=== PATIENT | male | born 1990 | race Caucasian/White ===

== ENCOUNTER 2020-04-19 00:52 | Outpatient (CLI) | payer OTHER, SELFPAY ==
[2020-04-19 18:47] LABS: SARS-CoV-2 RNA PCR Negative
== END 2020-04-19 00:53 | disposition home or self-care (01) ==
LOC: ANHCOVIDDT 00:53
PROVIDERS: Visit Provider Orthopaedic Surgery
DX: Z01.812 Encounter for preprocedural laboratory examination (principal); Z20.822 Contact with and (suspected) exposure to COVID-19
CPT/HCPCS: C9803; U0003; U0005

== ENCOUNTER 2020-04-23 02:10 | Day surgery (SDC) | payer OTHER, SELFPAY ==
[2020-04-11 15:04] VITALS: BMI 26.4
--- NOTE | 2020-04-18 12:50 | PM.IMHP ---
H&P: HPI History of Present Illness Date/Time: 04/18/20 12:50 Chief Complaint: Right shoulder pain after an injury with rotator cuff tendon tear. Narrative: Marcel Urrutia is a 29 year old male who presents with right shoulder pain chronic in nature. Patient has aching pain in the shoulder particularly since he has fallen and injured his right shoulder tried to catch himself on his outstretched arm. Immediately afterwards he tried to move his shoulder but had severe stabbing pain deep-seated in the shoulder. He was unable to use his arm normally. He has pain with trying to lift his arm overhead, initially after the injury he had x-rays at Urgent Care which revealed no fracture or lesion or mass. There was no evidence of a shoulder dislocation. Prior to the injury he never had a whole lot of problems with the shoulder. He remained now reports weakness and aching pain with rotation or overhead motion. Despite conservative measures including cortisone therapy and anti-inflammatories as symptoms continue. An MRI scan was then performed, this revealed on 03/31/2020, a full-thickness tear measuring 7.2 mm of the subscapularis insertion site. The patient does have supraspinatus tendinosis, the infraspinatus tendon is intact. There is AC joint hypertrophy type 2 acromion with subacromial outlet narrowing. Fluid is noted in the subdeltoid recess as well. The biceps tendon and bicipital labral complex are grossly preserved. At this point the patient is where the above findings he has discuss further treatment options in detail with Dr. Langston. The patient is now ready to proceed with surgical intervention right shoulder. Review of Systems Review of Systems: All systems reviewed & are unremarkable except as noted in HPI and below PMFSH Social History Social History Smoking status: Never smoker Spiritual care concerns: No Meds Home Medications and Allergies Home Medications Medication Instructions Recorded Confirmed Type multivit with min-folic acid 1 tablet PO DAILY 04/11/20 04/11/20 History [Adult One Daily Multivitamin] Allergies Allergy/AdvReac Type Severity Reaction Status Date / Time No Known Allergies Allergy Verified 04/11/20 15:03 Exam Narrative: Exam Narrative: The patient is noted to be a well-developed well-nourished male in no acute distress. He is alert and oriented x3. Normal mood and affect. Hearing and vision intact. Respiratory is good no distress. Pulse regular rate and rhythm. Abdomen benign. Extremities showed the patient's right shoulder to be painful with manipulation and range of motion. Actively he can raise his arm to about 90? passively he can get up to about 120? however this is painful. He has no crepitation no obvious deformity of the shoulder. Despite being quite muscular he has weakness And painful giving way with rotator cuff strength testing. Shoulder joint is otherwise stable. He has full painless neck motion. Skin is intact without rashes or lesions. Biceps strength is intact. Neurovascularly the patient is intact. Central nervous system exam within normal limits. Assessment and Plan Additional Plan By MRI and exam the patient is noted to have impingement with AC joint arthrosis type 2 acromion and rotator cuff tendon tear as described above. The patient has discussed risks benefits limitations and alternatives of surgery in great detail Dr. Langston he is now ready to proceed with a right shoulder arthroscopy, acromioplasty, open distal clavicle excision and rotator cuff repair proceed as indicated. Patient is scheduled to undergo surgery 04/23/2020 [facility] Dr. Langston. The patient voiced understanding and agrees with the above plan.
--- NOTE | 2020-04-22 15:53 | WPDANESEPPF ---
Anes - Initial Pre Proc Eval Procedure: Operation Date: 04/23/20 07:30 Proposed Procedures p Right Shoulder Arthroscopy, Acromioplasty, Open Distal Clavicle Excision, Rotator Cuff Repair, Proceed As Indicated - Dawson Langston MD Date/Time: 04/22/20 15:53 Surgeon: Dawson Langston MD Pre Op Diagnosis: right rotator cuff tear Patient Data Age: 29 Gender: M Height: 1.83 m Weight: 88.5 kg Allergies Allergy/AdvReac Type Severity Reaction Status Date / Time No Known Allergies Allergy Verified 04/23/20 06:21 Home Medications Medication Instructions Recorded Confirmed Type multivit with min-folic acid 1 tablet PO DAILY 04/11/20 04/23/20 History [Adult One Daily Multivitamin] Patient hx anesthesia problems: none Family hx anesthesia problems: none [facility] Past Medical History Medical History (Updated 04/22/20 @ 15:53 by Darren Merrill MD) Anxiety Depression Overweight (BMI 25.0-29.9) Social History Social History Smoking status: Never smoker Living arrangements: with family Spiritual care concerns: No Anes - Eval Final PreProcedure Day of Procedure 04/22/20 15:53 Patient weight: overweight Heart: regular rate and rhythm Lungs: clear to auscultation and normal air movement Airway: Mallampati scale class II Neurological: alert and oriented Last oral intake: >/= 8 hours ASA classification: II Emergent: no Anesthetic plan: proceed Anesthesia type and monitoring: general ETT Informed Consent: The patient's anesthetic plan and its attendant risks and benefits were discussed with the patient/family/POA. Questions were solicited and answers provided to the satisfaction of the patient/family/POA.
[2020-04-23] VITALS (9 sets, daily range): BP systolic 129–148; BP diastolic 66–83; PULSE 65–98; RESP 10–16; TEMP 36.2–36.7; O2SAT 94–100
[2020-04-23] MEDS: ACETAMINOPHEN 500 MG TABLET 1000 MG PO (06:23)
[2020-04-23] MEDS: LACTATED RINGERS 1,000 ML 30 ML IV CONT ×3 (06:50→10:50)
[2020-04-23] MEDS: KETOROLAC 15 MG/ML VIAL (*BKC) IV PUSH (06:50)
--- NOTE | 2020-04-23 07:03 | WPDHPUPDATE1 ---
History and Physical Update Update Date/Time: 04/23/20 07:03 History and Physical has been reviewed, including an updated exam of the patient. There are NO changes in the patient's condition. Risks, benefits, and alternatives have been discussed and questions answered. Patient agrees to proceed with procedure.
--- NOTE | 2020-04-23 07:10 | WPDANESPNB ---
Anes - Peripheral Nerve Block Date/Time: 04/23/20 07:10 I have discussed with the patient/family/POA the placement of a peripheral nerve block for post-operative pain management, including associated risks, benefits, complications, and side effects. Alternative methods of post-operative analgesia were detailed. Questions were solicited and answers provided to the satisfaction of the patient/family/POA. Time-Out: A pre-procedural Time-Out was completed immediately before starting the procedure and confirmed: Patient Identification, Site, Procedure, Patient Position and the Availability of Requisite Equipment. Clinical Indications: Acute post-operative pain management requested by the operative surgeon. Nerve Block Insertion Note Anes-nerve block: supraclavicular right Patient position: supine Skin prep: chlorhexidine Needle: 22 gauge, stimulating, insulated echogenic needle. Needle length: 80 mm Technique: ultrasound (in plane) Injectate: bupivacaine 0.5% with epi 5 mcg/ml (20cc) Observations: tolerated well Complications: none Procedure start time:: 715 Procedure end time::
[2020-04-23] MEDS: ceFAZolin 2 GM/D5W 50 ML 2 GM/50 ML BAG IVPB (08:19)
[2020-04-23] MEDS: LIDO 1%/EPINEPHRINE 1:100,000 50 ML VIAL 20 ML INFILTRATE (08:19)
--- NOTE | 2020-04-23 08:58 | PM.PROC ---
Procedure Note - Detailed Date of procedure: 04/23/20 Pre-op diagnosis: right rotator cuff tear Post-op diagnosis: same Anesthesia: GETA Surgeon: Dawson Langston MD Patient brought to operating room 7. A general anesthetic was administered placed on the operating table and sterilely prepped under standard posterolateral portals made arthroscopy began by injecting 20 cubic centimeters of local the biceps tendon was frayed 80% intact minimal rated the rotator cuff was obviously torn with the subacromial space and this was identified acromioplasty to skull a longitudinal incision then made from the AC joint distal were suction. Downs to the fascia distal clavicle was excised taking about 3 millimeters off edges beveled I split the deltoid have found the rotator cuff tear debrided the greater tuberosity and sewed it down with multiple 2. Ethibond sutures this gave a nice repair rock stable the arm was put through a full of motion some rasping of the acromion isn't done as of at this point the C-arm was smoothly and tear was repaired the deltoid was repaired to itself to acromion trapeze with 2. Ethibond closed 2 Vicryl and 3 0 Prolene SI told him before surgery in the office here is that this would disrupt his large tattoo Education Analyst: Juan Etienne Estimated blood loss (mL): 50 Drains: No Packing: No Pathology: none sent Complications: No immediate complications Condition: stable Disposition: PACU
[2020-04-23] MEDS: ONDANSETRON INJ 4 MG/2 ML VIAL IV PUSH (09:54)
== END 2020-04-23 12:35 | disposition home or self-care (01) ==
PROVIDERS: Family Provider Pediatrics; Visit Provider Orthopaedic Surgery
PROC: (CPT 29805; principal; 2020-04-23 07:30)
DX: S46.011A Strain of muscle(s) and tendon(s) of the rotator cuff of right shoulder, initial encounter (principal); X58.XXXA Exposure to other specified factors, initial encounter; G89.18 Other acute postprocedural pain
CPT/HCPCS: 23410; 23120; 64415; A9270; C9803; J0330; J0690; J1100; J1885; J2250; J2405; J2704; J3010; J7120; U0003; U0005

== ENCOUNTER 2023-04-10 23:11 | Emergency (ER) | payer OTHER, SELFPAY ==
[2023-04-10 23:17] VITALS: BP 138/82; PULSE 72; RESP 14; TEMP 36.6; O2SAT 99
[2023-04-10 23:41] LABS: Basophils Absolute Auto 0.1 K/mm3 (0.0-0.1); Basophils Percent Auto 0.8 % (0.2-1.2); Eosinophils Absolute Auto 0.7 K/mm3 (0-0.3); Eosinophils Percent Auto 10.2 % (0-4.4); Hematocrit 41.4 % (42.0-52.0); Hemoglobin 13.6 g/dL (14.0-18.0); Immature Granulocyte Absolute 0.02 K/mm3 (0.00-0.031); Immature Granulocyte Percent A 0.3 % (0-0.5); Lymphocytes Absolute Auto 2.07 K/mm3 (0.9-3.2); Lymphocytes Percent Auto 31.4 % (18.3-44.2); Mean Corpuscular HGB Conc 32.9 g/dl (32-36); Mean Corpuscular Hemoglobin 30.9 pg (26-34); Mean Corpuscular Volume 94.1 fl (80-100); Mean Platelet Volume 8.8 fl (7.4-10.4); Monocytes Percent Auto 14.6 % (2.6-8.5); Neutrophils Absolute Auto 2.8 K/mm3 (1.3-6.7); Neutrophils Percent Auto 42.7 % (45.5-73.1); Platelet Count Result 266 k/mm3 (150-375); Red Cell Distribution Width 12.2 % (11.5-14.5); White Blood Count 6.6 K/mm3 (4.5-10.0)
[2023-04-10 23:47] LABS: Appearance Urine Clear (Clear); Bilirubin Urine Negative (Negative); Blood Urine Negative (Negative); Color Urine Dark Yellow (Yellow); Glucose Urine UA Negative (Negative); Ketones Urine Negative (Negative); Leukocyte Esterase Ur Negative LEU/UL (Negative); Nitrate Urine Negative (Negative); Protein Urine Negative (Negative); Specific Grav Ur 1.015 (1.001-1.035); Urobilinogen Urine 0.2 mg/dL (<2.0); pH Urine 6.5 (5.0-9.0)
[2023-04-10 23:48] LABS: Add Urine Microscopic? NO
[2023-04-11 00:01] LABS: Alanine Aminotransferase 29 U/L (6-50); Albumin Level 4.6 g/dL (3.5-5.1); Alkaline Phosphatase 55 U/L (38-126); Anion Gap 9 mmol/L (8-16); Aspartate Amino Transferase 28 U/L (17-59); Bilirubin,Total 0.5 mg/dL (0.2-1.3); Blood Urea Nitrogen 21 mg/dL (9-20); Calcium 9.4 mg/dL (8.4-10.2); Carbon Dioxide 33 mmol/L (22-30); Chloride 97 mmol/L (98-107); Estimated CRCL calculation 82 ml/min; Estimated Glomerular Filt Rate > 60; Glucose 99 mg/dL (65-110); Lipase 100 U/L (23-300); Potassium 3.9 mmol/L (3.4-5.0); Sodium 139 mmol/L (137-145)
[2023-04-11 03:37] VITALS: BP 142/80; PULSE 60; RESP 16; TEMP 36.4; O2SAT 99
--- NOTE | 2023-04-11 05:12 | PC.NURSE ---
Patient called up to triage area for repeat vitals. No answer
--- NOTE | 2023-04-11 05:22 | PC.NURSE ---
Patient again called up for repeat vitals. No answer
== END 2023-04-11 05:00 | disposition left against medical advice (07) ==
PROVIDERS: Emergency Provider Emergency Medicine
DX: R10.9 Unspecified abdominal pain (principal)
CPT/HCPCS: 36415; 80053; 81003; 83690; 85025; 99199